=== PATIENT | male | born 1985 | race Caucasian/White ===

== ENCOUNTER 2017-07-24 09:34 | Emergency (ER) | payer OTHER ==
[~2017-07-24] VITALS: Ht 188 cm; Wt 113.5 kg
[~2017-07-24 09:34] MED LIST: CYCL5TAB PO; GABA400C5 PO; PRIL20TA2 PO
[2017-07-24 09:35] VITALS: BP 130/80; PULSE 89; RESP 18; TEMP 99.1; O2SAT 99
[2017-07-24] MEDS ORDERED: MAGICPED SWISH-SWAL (09:46)
[2017-07-24] MEDS ORDERED: IBUP1TAB7 PO (09:46)
[2017-07-24] MEDS ORDERED: AMOX500C PO (09:46)
--- NOTE | 2017-07-24 09:47 | PD ---
HPI Chief Complaint: ENT Complaint Time Seen by Provider: 09:42 Travel History International Travel<30 days: No Contact w/Intl Traveler<30days: No Traveled to known affect area: No History of Present Illness HPI 31-year-old male presents to the emergency department with complaint of sore throat 2 days. Denies lump in throat, difficulty swallowing, unusual drooling. Reports painful swallowing. Denies nasal congestion, ear pain, cough. Denies headache, vomiting, abdominal pain. No one else has similar symptoms. Has been taking ibuprofen and DayQuil for symptom management. Symptoms are mild in severity. No known relieving factors. No known allergies. Reports history of strep throat. Has no other medical complaints. No other modifying factors or associated signs and symptoms. PFSH Past Medical History Cancer: No Cardiovascular Problems: No Diabetes: No Endocrine: No Genitourinary: No Hepatitis: No Hiatal Hernia: No Immune Disorder: No Musculoskeletal: Yes (SCIATIC NERVE DAMAGE LEG, LUMBAR AND MID HERNIATED, BULDGING DISCS) Neurologic: No Psychiatric: No Respiratory: No Thyroid Disease: No Past Surgical History Body Medical Devices: NONE Social History Alcohol Use: No Tobacco Use: Yes (1ppd) Substance Use: No Allergies-Medications (Allergen,Severity, Reaction): Coded Allergies: No Known Allergies (Verified , 03/25/12) Reported Meds & Prescriptions Reported Meds & Active Scripts Active Ibuprofen 800 Mg Tab 800 Mg PO Q6HR PRN Magic Mouthwash Pediatric/Adult Liq (Lidocaine/Diphenhydr/Alum/Mg/Simeth) 60 Ml Susp 5 Ml SWISH-SWAL ACHS PRN Each 5mL contains: Diphenydramine 4.5mg, Viscous Lidocaine 2% 10mg, Maalox Advanced Regular Strength 2.7ml Amoxicillin 500 Mg Cap 500 Mg PO BID 10 Days Reported Prilosec Otc (Omeprazole Magnesium) 20 Mg Tab 20 Mg PO BID Flexeril (Cyclobenzaprine HCl) 5 Mg Tab 5 Mg PO BID Gabapentin 400 Mg Cap 400 Mg PO TID Review of Systems Except as stated in HPI: all other systems reviewed are Neg Physical Exam Narrative GENERAL: Well-nourished, well-developed male patient, in no acute distress SKIN: Warm and dry. No rash. HEAD: Atraumatic. Normocephalic. EYES: Pupils equal and round at 3 mm with brisk reaction. No scleral icterus. No injection or drainage. PERRLA. ENT: Mucosa pink and dry. Pharynx with 2+ tonsils; with erythema, exudate, and edema. No Uvular edema. No uvular, palatal, or tonsillar deviation. Airway patent. Voice is hoarse. EARS: Bilateral pinnae and external canals appear within normal limits. Bilateral tympanic membranes without erythema, dullness or perforation.. NECK: Trachea midline. Anterior cervical lymphadenopathy and tenderness. CARDIOVASCULAR: Regular rate. RESPIRATORY: No accessory muscle use GASTROINTESTINAL: Rounded. MUSCULOSKELETAL: No obvious deformities. No clubbing. No cyanosis. No edema. NEUROLOGICAL: Awake and alert. Oriented 3. No obvious cranial nerve deficits. Motor grossly within normal limits. Normal speech. Moves all extremities. PSYCHIATRIC: Appropriate mood and affect; insight and judgment normal. Data Data Last Documented VS Vital Signs Date Time Temp Pulse Resp B/P (MAP) Pulse Ox O2 Delivery O2 Flow Rate FiO2 07/24/17 09:35 99.1 89 18 130/80 (97) 99 Room Air Orders Orders Ed Discharge Order (07/24/17 09:47) Group A Rapid Strep Screen (07/24/17 09:47) Sodium Chloride 0.9% Flush (Ns Flush) (07/24/17 10:00) MDM Medical Decision Making Medical Screen Exam Complete: Yes Emergency Medical Condition: Yes Medical Record Reviewed: Yes Differential Diagnosis Strep pharyngitis, exudative pharyngitis, viral pharyngitis, less likely peritonsillar abscess Narrative Course 31-year-old male physical exam consistent with exudative pharyngitis. She is afebrile and nontoxic appearing. Denies fever, vomiting. Denies lump in throat , difficulty swallowing, unusual drooling. Rapid strep pending. Amoxicillin, Magic mouthwash, ibuprofen prescribed for home. Instructed patient to follow up with primary care provider. Patient verbalizes understanding and agreement with treatment plan. Patient is medically cleared and stable for discharge. Discussed reasons to return to the emergency department. Patient agrees with treatment plan. The patients vital signs are stable and the patient is stable for outpatient follow-up and treatment. Patient discharged home, stable and in no acute distress. Diagnosis Primary Impression: Exudative pharyngitis Referrals: [facility] Primary Care Physician Patient Instructions: General Instructions, Pharyngitis (ED) Departure Forms: Tests/Procedures, Work Release Enter return to work date: Jul 26, 2017 Additional Instructions: Take Antibiotics as prescribed and complete full course of antibiotics Throw away and change your toothbrush 24 hours after starting antibiotics Get plenty of sleep/rest Rest your voice Drink plenty of fluids to prevent dehydration Use warm saltwater gargles to soothe throat pain Use an air humidifier/turn off ceiling fans Use throat lozenges as needed for sore throat Use ibuprofen or acetaminophen as needed to relieve pain and fever Follow-up with your primary care provider within 2-4 days Return immediately to the emergency department with worsening of symptoms Med/Other Pt SpecificInfo: Prescription(s) given Scripts Ibuprofen (Ibuprofen) 800 Mg Tab 800 MG PO Q6HR Y for PAIN, #30 TAB 0 Refills Prov: Julianna Courtney 07/24/17 Kvlctjoljttzxkx-Jpjgjwinc-Evx-Alum-Simeth Liq (Magic Mouthwash Pediatric/Adult Liq) 60 Ml Susp 5 ML SWISH-SWAL ACHS Y for SORE THROAT, #60 ML 0 Refills Each 5mL contains: Diphenydramine 4.5mg, Viscous Lidocaine 2% 10mg, Maalox Advanced Regular Strength 2.7ml Prov: Julianna Courtney 07/24/17 Amoxicillin (Amoxicillin) 500 Mg Cap 500 MG PO BID for Infection for 10 Days, #20 CAP 0 Refills Prov: Julianna Courtney 07/24/17 Disposition: 01 DISCHARGE HOME Condition: Stable Julianna Courtney Jul 24, 2017 09:47
[2017-07-24] MEDS ORDERED: SODIUM CHLORIDE 0.9% FLUSH 10 ML FLUSH IVF PRN (10:00)
[2017-07-24 10:31] VITALS: BP 130/70
== END 2017-07-24 10:33 | disposition home or self-care (01) ==
LOC: NEPD 09:34
DX: J02.9 Acute pharyngitis, unspecified (principal); F17.200 Nicotine dependence, unspecified, uncomplicated; Z79.899 Other long term (current) drug therapy
CPT/HCPCS: 87880; 99285